=== PATIENT | female | born 1945 | race Caucasian/White ===

== ENCOUNTER → 2022-04-01 | Outpatient (CLI) | payer MEDICARE | LOC: M WHC 10:24 | PROVIDERS: ATTEND Nurse Practitioner Family | DX: N83.201 Unspecified ovarian cyst, right side (principal) ==

== ENCOUNTER → 2022-04-07 | Outpatient (CLI) | payer MEDICARE | LOC: M WUC 11:46 | PROVIDERS: ATTEND Family Medicine | DX: M16.0 Bilateral primary osteoarthritis of hip (principal) ==

== ENCOUNTER → 2023-06-20 | Outpatient (CLI) | payer MEDICARE ==
[2023-06-20 14:15] LABS: APPEARANCE, URINE CLEAR (CLEAR); BACTERIA, URINE AUTO NEGATIVE (NEGATIVE); BILIRUBIN, URINE AUTO NEGATIVE (NEGATIVE); BLOOD, URINE BLOOD NEGATIVE (NEGATIVE); COLOR, URINE YELLOW (YELLOW); GLUCOSE, URINE (UA) AUTO NEGATIVE (NEGATIVE); KETONE, URINE AUTO NEGATIVE (NEGATIVE); LEUKOCYTE ESTERASE, URINE AUTO NEGATIVE (NEGATIVE); NITRITE, URINE AUTO NEGATIVE (NEGATIVE); PROTEIN, URINE AUTO NEGATIVE (NEGATIVE); RBC, URINE AUTO 0 /HPF (0-3); SPECIFIC GRAVITY URINE AUTO 1.009 (1.002-1.035); SQUAMOUS EPITHELIAL CELL UR AU 0 /HPF (0-6); UROBILINOGEN, URINE AUTO 0.2 mg/dL (0.0-2.0); WBC, URINE AUTO 1 /HPF (0-3)
[2023-06-20 14:22] LABS: BASO % 0.6 % (0.0-1.0); EOS # 0.1 10^3/uL (0.0-0.5); EOS % 1.1 % (0.0-3.0); HEMATOCRIT 36.1 % (36.0-47.0); HEMOGLOBIN 11.9 g/dl (12.0-15.5); LYMPH # 1.7 10^3/uL (1.5-5.0); LYMPH % 27.2 % (24.0-44.0); MEAN CORPUSCULAR HEMOGLOBIN 29.7 pg (27.0-33.0); MONO # 0.7 10^3/uL (0.0-0.8); MONO % 11.9 % (2.0-8.0); NEUTROPHILS # 3.7 10^3/uL (1.5-8.5); NEUTROPHILS % 58.9 % (36.0-66.0); PLATELET COUNT, AUTOMATED 376 10^3/uL (150-450); RED BLOOD COUNT 4.01 10^6/uL (4.00-5.40); WHITE BLOOD COUNT 6.2 10^3/uL (4.0-10.0)
[2023-06-20 14:49] LABS: BLOOD UREA NITROGEN 13 MG/DL (9-23); CALCIUM LEVEL 9.1 MG/DL (8.3-10.6); CARBON DIOXIDE LEVEL 31 MMOL/L (20-31); CHLORIDE LEVEL 105 MMOL/L (98-107); CREATININE FOR GFR 0.75 MG/DL (0.55-1.30); GLOMERULAR FILTRATION RATE > 60.0 (>39); GLUCOSE, FASTING 92 MG/DL (74-106); POTASSIUM SERUM 4.2 MMOL/L (3.5-5.1); SODIUM LEVEL 142 MMOL/L (136-145)
== END ==
LOC: M LAB 13:46
PROVIDERS: ATTEND Nurse Practitioner Family
DX: Z01.818 Encounter for other preprocedural examination (principal)

== ENCOUNTER → 2023-06-27 | Outpatient (CLI) | payer MEDICARE | LOC: M RAD 12:49 | PROVIDERS: ATTEND Surgery Vascular Surgery | DX: I87.2 Venous insufficiency (chronic) (peripheral) (principal) ==

== ENCOUNTER → 2023-11-17 | Outpatient (REF) | payer MEDICARE | LOC: M SFHCDERM 17:38 | PROVIDERS: ATTEND Physician Assistant | DX: C44.311 Basal cell carcinoma of skin of nose (principal) ==

== ENCOUNTER → 2024-04-06 | Outpatient (CLI) | payer MEDICARE | LOC: M WHC 08:06 | PROVIDERS: ATTEND Family Medicine | DX: M85.832 Other specified disorders of bone density and structure, left forearm (principal) ==